=== PATIENT | female | born 1970 | race Asian ===

== ENCOUNTER → 2017-09-06 | Outpatient (CLI) | payer OTHER ==
--- NOTE | 2017-09-06 09:09 | DIAGNOSTIC IMAGING REPORT ---
PELVIC ULTRASOUND, TRANSABDOMINAL AND TRANSVAGINAL HISTORY: PROLONGED MENSTRUATION COMPARISON: None. FINDINGS: Uterus: 11.4 x 6.1 x 7.9 cm. The uterus is heterogeneous primarily along the anterior wall and demonstrates scattered areas of shadowing and hypervascularity. This likely represents adenomyosis. Endometrial stripe: Abnormally thickened at 2 cm. There is mobile debris/hemorrhage within the endometrium. Right ovary: Obscured by overlying bowel gas. Left ovary: Normal in size and demonstrates normal color flow. A 2.7 cm cyst. Miscellaneous:No pelvic free fluid. IMPRESSION: 1. The uterus is heterogeneous primarily along the anterior wall and demonstrates scattered areas of shadowing and hypervascularity. This likely represents adenomyosis. 2. Abnormally thickened endometrium at 2 cm containing mobile debris/hemorrhage. Gynecologic consultation recommended. 3. Right ovary was not identified due to overlying bowel gas. 3. A 2.7 cm left ovarian cyst Electronically signed by: Robbie Cai M.D. 09/06/2017 9:08 AM Dictated Date/Time: 09/06/2017 9:04 AM
== END | disposition home or self-care (01) ==
LOC: C.ULTR 07:46
PROVIDERS: ATTEND Family Medicine
DX: N92.0 Excessive and frequent menstruation with regular cycle (principal); N92.1 Excessive and frequent menstruation with irregular cycle; R93.49 Abnormal radiologic findings on diagnostic imaging of other urinary organs; N83.202 Unspecified ovarian cyst, left side

== ENCOUNTER → 2017-09-10 | Outpatient (CLI) | payer OTHER ==
[2017-09-10 13:17] LABS: HEMATOCRIT 30.9 % (37-47); MEAN CELL VOLUME 86.8 fL (80-100); MEAN CORPUSCULAR HEMOGLOBIN 30.3 pg (25-34); MEAN PLATELET VOLUME 9.7 fL (7.4-10.4); PLATELET COUNT 281 K/uL (130-400); RED BLOOD COUNT 3.56 M/uL (4.2-5.4); WHITE BLOOD COUNT 4.16 K/uL (4.8-10.8)
[2017-09-10 13:47] LABS: PREG INTERNAL NEGATIVE QC NEG CLEAR BACKGROUND; PREG INTERNAL POSITIVE QC POS CONTROL LINE
== END | disposition home or self-care (01) ==
LOC: C.LAB1850 11:32
PROVIDERS: ATTEND Physician Assistant
DX: N92.6 Irregular menstruation, unspecified (principal)